=== PATIENT | male | born 1960 | race Caucasian/White ===

== ENCOUNTER 2017-04-21 11:20 | Emergency (ER) | payer OTHER ==
[2017-04-21] MEDS ORDERED: Aspirin Low Dose CHEW TAB* 81 MG PO ONE (11:54)
[2017-04-21 12:11] LABS: Hematocrit 42 % (42-52); Mean Corpuscular HGB Conc 34 g/dl (31-36); Mean Corpuscular Hemoglobin 32 pg (27-31); Mean Corpuscular Volume 94 fL (80-94); Mean Platelet Volume 10 um3 (7.4-10.4); Red Blood Count 4.42 10^6/ul (4.0-5.4); Red Cell Distribution Width 14 % (10.5-15); White Blood Count 9.5 10^3/ul (3.5-10.8)
[2017-04-21 12:27] LABS: Albumin 3.7 g/dL (3.2-5.2); BUN/Creatinine Ratio 18.1 (8-20); EGFR African American 106.8 (>60); Globulin 2.5 g/dL (2-4); Total Bilirubin 1.3 mg/dL (0.2-1.0); Total Protein 6.2 g/dL (6.4-8.9)
[2017-04-21 12:28] LABS: Troponin I 0.01 ng/mL (<0.04)
[2017-04-21 12:53] LABS: T4 5.48 mcg/mL (6.09-12.23)
[2017-04-21 12:54] LABS: TSH (Thyroid Stimulating Horm) 1.34 mcIU/mL (0.34-5.60)
--- NOTE | 2017-04-21 14:22 | RAD ---
Indication: Tachycardia. Single frontal view of the chest performed at 1245 hours was reviewed. No prior study is available for comparison. No mediastinal shift is noted. Heart is of normal size and configuration. Lung alberto appear clear. IMPRESSION: NO ACTIVE CARDIOPULMONARY DISEASE IS NOTED.
[2017-04-21 14:35] VITALS: BP 110/71
--- NOTE | 2017-04-21 17:39 | ED ---
Tatiana Mulligan Thomas, scribed for Juan Miguel Bernardo MD on 04/21/17 at 1143 . Palpitations / Dysrhythmia - HPI Summary HPI Summary: The pt is a 56 y/o M presenting to the ED c/o episodes of palpitations characterized as fast and hard. Today, the patient reports that he had one episode of palpitations this AM at 11:00 that lasted 15-20 minutes but has since resolved. He reports that in the past his HR has been about 180 BPM during these episodes. The patient claims that his palpitations are relieved through [place] oxygen and they are worsened with exertion. He denies that these palpitations have ever been observed when they are occurring. He claims that a previous EKG showed normal sinus rhythm. Pt additionally c/o SOB with exertion, PMHx: previously healthy. PSHx: inguinal hernia repair. SHx: smoking (1 PPD), occasional alcohol, marijuana use. FHx: heart murmurs, asthma. - History of Current Complaint Chief Complaint: EDDizziness Time Seen by Provider: 04/21/17 11:32 Hx Obtained From: Patient Onset/Duration: Sudden Onset, Lasting Minutes - 11:00 today,, Resolved Timing: Intermittent Episodes Lasting: - 15-20 minutes Severity Currently: None Character: Fast, Pounding Aggravating: Exertion Alleviating: Exertion Associated Signs & Symptoms: Shortness of Breath - Allergy/Home Medications Allergies/Adverse Reactions: Allergies Allergy/AdvReac Type Severity Reaction Status Date / Time No Known Allergies Allergy Verified 04/21/17 11:31 Home Medications: Home Medications NK [No Home Medications Reported] 04/21/17 [History Confirmed 04/21/17] PMH/Surg Hx/FS Hx/Imm Hx Previously Healthy: Yes Endocrine/Hematology History: Denies: Hx Diabetes Cardiovascular History: Denies: Hx Pacemaker/ICD Sensory History: Denies: Hx Hearing Aid Psychiatric History: Denies: Hx Panic Disorder - Surgical History Surgery Procedure, Year, and Place: - 1977 Infectious Disease History: No Infectious Disease History: Denies: Traveled Outside the [place] in Last 30 Days - Family History Known Family History: Positive: Other - POS: asthma, heart murmur - Social History Alcohol Use: Occasionally Substance Use Type: Reports: Marijuana Hx Tobacco Use: Yes Smoking Status (MU): Light Every Day Tobacco Smoker Review of Systems Constitutional: Negative Negative: Fever Positive: Palpitations - one episode at 11:00 for 15-20 minutes that has since resolved, characterized as fast and hard Positive: Shortness Of Breath - with exertion All Other Systems Reviewed And Are Negative: Yes Physical Exam - Summary Physical Exam Summary: VITAL SIGNS: Reviewed. GENERAL: ~Patient is a well-developed and nourished male who is lying comfortable in the stretcher. ~Patient is not in any acute respiratory distress. HEAD AND FACE: No signs of trauma. ~No ecchymosis, hematomas or skull depressions. No sinus tenderness. EYES: PERRLA, EOMI x 2, No injected conjunctiva, no nystagmus. EARS: Hearing grossly intact. Ear canals and tympanic membranes are within normal limits. MOUTH: Oropharynx within normal limits. NECK: Supple, trachea is midline, no adenopathy, no JVD, no carotid bruit, no c- spine tenderness, neck with full ROM. CHEST: Symmetric, no tenderness at palpation LUNGS: Clear to auscultation bilaterally. No wheezing or crackles. CVS: Regular rate and rhythm, S1 and S2 present, no murmurs or gallops appreciated. ABDOMEN: Soft, non-tender. No signs of distention. No rebound no guarding, and no masses palpated. Bowel sounds are normal. EXTREMITIES: FROM in all major joints, no edema, no cyanosis or clubbing. NEURO: Alert and oriented x 3. No acute neurological deficits. Speech is normal and follows commands. SKIN: Dry and warm Triage Information Reviewed: Yes Vital Signs On Initial Exam: Initial Vitals Temp Pulse Resp Pulse Ox 99.4 F 74 15 100 04/21/17 11:25 04/21/17 11:25 04/21/17 11:25 04/21/17 11:25 Vital Signs Reviewed: Yes - [place] Coma Scale Coma Scale Total: 15 Diagnostics - Vital Signs Vital Signs Temp Pulse Resp BP Pulse Ox 04/21/17 11:27 99.4 F 85 16 99/59 98 04/21/17 11:25 99.4 F 74 15 100 - Laboratory Lab Results: Lab Results 04/21/17 04/21/17 04/21/17 Range/Units 12:02 12:02 12:02 WBC 9.5 (3.5-10.8) 10^3/ul RBC 4.42 (4.0-5.4) 10^6/ul Hgb 14.0 (14.0-18.0) g/dl Hct 42 (42-52) % MCV 94 (80-94) fL MCH 32 H (27-31) pg MCHC 34 (31-36) g/dl RDW 14 (10.5-15) % Plt Count 182 (150-450) 10^3/ul MPV 10 (7.4-10.4) um3 Neut % (Auto) 70.6 (38-83) % Lymph % (Auto) 21.3 L (25-47) % [place] % (Auto) 5.8 (1-9) % Eos % (Auto) 0.8 (0-6) % Baso % (Auto) 1.5 (0-2) % Absolute Neuts (auto) 6.7 (1.5-7.7) 10^3/ul Absolute Lymphs (auto) 2.0 (1.0-4.8) 10^3/ul Absolute Monos (auto) 0.5 (0-0.8) 10^3/ul Absolute Eos (auto) 0.1 (0-0.6) 10^3/ul Absolute Basos (auto) 0.1 (0-0.2) 10^3/ul Absolute Nucleated RBC 0 10^3/ul Nucleated RBC % 0 Sodium 135 (133-145) mmol/L Potassium 4.0 (3.5-5.0) mmol/L Chloride 107 (101-111) mmol/L Carbon Dioxide 23 (22-32) mmol/L Anion Gap 5 (2-11) mmol/L BUN 17 (6-24) mg/dL Creatinine 0.94 (0.67-1.17) mg/dL Est GFR ( Amer) 106.8 (>60) Est GFR (Non-Af Amer) 83.0 (>60) BUN/Creatinine Ratio 18.1 (8-20) Glucose 102 H (70-100) mg/dL Lactic Acid 1.2 (0.5-2.0) mmol/L Calcium 9.0 (8.6-10.3) mg/dL Magnesium 2.0 (1.9-2.7) mg/dL Total Bilirubin 1.30 H (0.2-1.0) mg/dL AST 19 (13-39) U/L ALT 14 (7-52) U/L Alkaline Phosphatase 61 (34-104) U/L Total Creatine Kinase 37 (10-223) U/L Troponin I 0.01 (<0.04) ng/mL B-Natriuretic Peptide ( - 100) pg/mL Total Protein 6.2 L (6.4-8.9) g/dL Albumin 3.7 (3.2-5.2) g/dL Globulin 2.5 (2-4) g/dL Albumin/Globulin Ratio 1.5 (1-3) TSH 1.34 (0.34-5.60) mcIU/mL Thyroxine (T4) 5.48 L (6.09-12.23) mcg/mL 04/21/17 Range/Units 12:02 WBC (3.5-10.8) 10^3/ul RBC (4.0-5.4) 10^6/ul Hgb (14.0-18.0) g/dl Hct (42-52) % MCV (80-94) fL MCH (27-31) pg MCHC (31-36) g/dl RDW (10.5-15) % Plt Count (150-450) 10^3/ul MPV (7.4-10.4) um3 Neut % (Auto) (38-83) % Lymph % (Auto) (25-47) % [place] % (Auto) (1-9) % Eos % (Auto) (0-6) % Baso % (Auto) (0-2) % Absolute Neuts (auto) (1.5-7.7) 10^3/ul Absolute Lymphs (auto) (1.0-4.8) 10^3/ul Absolute Monos (auto) (0-0.8) 10^3/ul Absolute Eos (auto) (0-0.6) 10^3/ul Absolute Basos (auto) (0-0.2) 10^3/ul Absolute Nucleated RBC 10^3/ul Nucleated RBC % Sodium (133-145) mmol/L Potassium (3.5-5.0) mmol/L Chloride (101-111) mmol/L Carbon Dioxide (22-32) mmol/L Anion Gap (2-11) mmol/L BUN (6-24) mg/dL Creatinine (0.67-1.17) mg/dL Est GFR ( Amer) (>60) Est GFR (Non-Af Amer) (>60) BUN/Creatinine Ratio (8-20) Glucose (70-100) mg/dL Lactic Acid (0.5-2.0) mmol/L Calcium (8.6-10.3) mg/dL Magnesium (1.9-2.7) mg/dL Total Bilirubin (0.2-1.0) mg/dL AST (13-39) U/L ALT (7-52) U/L Alkaline Phosphatase (34-104) U/L Total Creatine Kinase (10-223) U/L Troponin I (<0.04) ng/mL B-Natriuretic Peptide 63 ( - 100) pg/mL Total Protein (6.4-8.9) g/dL Albumin (3.2-5.2) g/dL Globulin (2-4) g/dL Albumin/Globulin Ratio (1-3) TSH (0.34-5.60) mcIU/mL Thyroxine (T4) (6.09-12.23) mcg/mL Result Diagrams: 04/21/17 12:02 04/21/17 12:02 Lab Statement: Any lab studies that have been ordered have been reviewed, and results considered in the medical decision making process. - Radiology CXR Xray Interpretation: No Acute Changes - No active cardiopulmonary disease is noted Radiology Interpretation Completed By: Radiologist - EKG 11:30 Cardiac Rate: NL - 80 BPM EKG Interpretation: Normal sinus rhythm with no ST elevations Course/Dx - Course Assessment/Plan: The pt is a 56 y/o M presenting to the ED c/o episodes of palpitations characterized as fast and hard. Today, the patient reports that he had one episode of palpitations this AM at 11:00 that lasted 15-20 minutes but has since resolved. He reports that in the past his HR has been about 180 BPM during these episodes. The patient claims that his palpitations are relieved through [place] oxygen and they are worsened with exertion. He denies that these palpitations have ever been observed when they are occurring. He claims that a previous EKG showed normal sinus rhythm. Pt additionally c/o SOB with exertion, PMHx: previously healthy. PSHx: inguinal hernia repair. SHx: smoking (1 PPD), occasional alcohol, marijuana use. FHx: heart murmurs, asthma. Test results are without significant abnormality. An EKG shows no acute changes and no abnormalities. The CXR is negative for any acute pathology. The patient does remain stable and we observed the patient for 3 hours with no signs of any arrhythmia. I believe the patient may benefit from a Holter monitor, which would be provided by her primary care provider. Since the patient is asymptomatic and hemodynamically stable, the patient will be discharged home with follow up by PCP. I discussed all the findings and test results with the patient. Patient was instructed to return to the emergency room immediately if any of the symptoms return or worsens. Plan of care was discussed with the patient and understands and agrees. All questions were answered at patient satisfaction. There were no further complaints or concerns. - Diagnoses Provider Diagnoses: Dyspnea, Palpitations Discharge - Discharge Plan Condition: Stable Disposition: HOME Patient Education Materials: Dyspnea (ED), Palpitations (ED) Referrals: Jono MCCOY,Charity Peng [Primary Care Provider] - 3 Days The documentation as recorded by the Tatiana sanches Thomas accurately reflects the service I personally performed and the decisions made by me, Juan Miguel Bernardo MD.
== END 2017-04-21 15:08 | disposition home or self-care (01) ==
LOC: ED 11:20
DX: R06.00 Dyspnea, unspecified (principal); R00.2 Palpitations; I51.7 Cardiomegaly; F17.210 Nicotine dependence, cigarettes, uncomplicated
CPT/HCPCS: 36415; 71010; 80053; 82550; 83605; 83735; 83880; 84436; 84443; 84484; 85025; 93005; 99283; A9270-GY